=== PATIENT | male | born 1960 | race Caucasian/White ===

== ENCOUNTER 2017-01-12 13:29 | Emergency (ER) | payer BC ==
[2017-01-12 13:39] VITALS: BP 168/82; PULSE 99; RESP 20; TEMP 97.6; O2SAT 98
[2017-01-12] MEDS ORDERED: LOSA25TA PO (13:43)
[2017-01-12] MEDS ORDERED: AMLO2.5T PO (13:43)
[2017-01-12 13:56] LABS: BASOPHIL # 0.1 TH/MM3 (0-0.2); BASOPHIL % 0.7 % (0.0-2.0); EOSINOPHIL # 0.6 TH/MM3 (0-0.4); EOSINOPHIL % 6.1 % (0.0-4.0); HEMATOCRIT 49.8 % (39.0-51.0); HEMO FLAGS DIFF FINAL; LYMPH % 22.9 % (9.0-44.0); LYMPHOCYTE # 2.2 TH/MM3 (1.0-4.8); MEAN CELL VOLUME 84.2 FL (80.0-100.0); MEAN CORPUSCULAR HEMOGLOBIN 28.9 PG (27.0-34.0); MEAN CORPUSCULAR HGB CONC 34.3 % (32.0-36.0); MONO % 6.7 % (0.0-8.0); NEUT % 63.6 % (16.0-70.0); PLATELET COUNT 242 TH/MM3 (150-450); RED BLOOD COUNT 5.91 MIL/MM3 (4.50-5.90); RED CELL DISTRIBUTION WIDTH 12.5 % (11.6-17.2); WHITE BLOOD COUNT 9.5 TH/MM3 (4.0-11.0)
[2017-01-12 13:57] VITALS: O2SAT 95
[2017-01-12] MEDS ORDERED: SODIUM CHLORIDE 0.9% FLUSH 5 ML FLUSH IVF PRN (14:00)
[2017-01-12 14:01] VITALS: BP_SYST 159; BP_SYST 165; BP_DIAS 82; BP_DIAS 92; PULSE 65; RESP 20; O2SAT 97
--- NOTE | 2017-01-12 14:01 | PD ---
HPI Chief Complaint: Chest Pain Time Seen by Provider: 13:39 Travel History International Travel<30 days: No Contact w/Intl Traveler<30days: No Traveled to known affect area: No History of Present Illness HPI This is a 56-year-old male who presents to the emergency department with chest pain that started an hour ago while he was driving in the car, constant, moderate severity in the left side of his chest, nonradiating, with no associated shortness of breath, nausea or diaphoresis. He does have a history of hypertension and hyperlipidemia. He's never had chest pain like this before. He does smoke cigarettes. He has no family history of heart disease. PFSH Past Medical History Hypertension: Yes Social History Alcohol Use: Yes Tobacco Use: Yes Substance Use: No Allergies-Medications (Allergen,Severity, Reaction): Coded Allergies: No Known Allergies (Unverified , 01/12/17) Reported Meds & Prescriptions Reported Meds & Active Scripts Active Reported Amlodipine (Amlodipine Besylate) 2.5 Mg Tab Unknown Dose PO DAILY Losartan (Losartan Potassium) 25 Mg Tab Unknown Dose PO DAILY Review of Systems Except as stated in HPI: all other systems reviewed are Neg Physical Exam Narrative GENERAL:Well appearing, no acute distress SKIN: Warm and dry. HEAD: Atraumatic. Normocephalic. EYES: Pupils equal and round. No injection or drainage. ENT: Moist mucous membranes NECK: Trachea midline. CARDIOVASCULAR: Regular rate and rhythm. No murmur appreciated. RESPIRATORY: Clear to auscultation. Breath sounds equal bilaterally. GASTROINTESTINAL: Abdomen soft, non-tender, nondistended. MUSCULOSKELETAL: No obvious deformities. NEUROLOGICAL: Awake and alert. No obvious cranial nerve deficits. Moving all extremities. PSYCHIATRIC: Appropriate mood and affect; insight and judgment normal. Data Data Last Documented VS Vital Signs Date Time Temp Pulse Resp B/P Pulse Ox O2 Delivery O2 Flow Rate FiO2 01/12/17 15:48 63 20 154/83 100 01/12/17 14:01 Nasal Cannula 2 01/12/17 13:39 97.6 Orders Electrocardiogram (01/12/17 13:48) Complete Blood Count With Diff (01/12/17 13:48) Comprehensive Metabolic Panel (01/12/17 13:48) Troponin I (01/12/17 13:48) Chest, Single Ap (01/12/17 13:48) Ecg Monitoring (01/12/17 13:48) Bilateral Bp Monitoring (01/12/17 13:48) Iv Access Insert/Monitor (01/12/17 13:48) Oximetry (01/12/17 13:48) Oxygen Administration (01/12/17 13:48) Sodium Chloride 0.9% Flush (Ns Flush) (01/12/17 14:00) Nitroglycerin Sl (Nitrostat Sl) (01/12/17 14:45) Troponin I (01/12/17 15:51) Labs Laboratory Tests Test 01/12/17 01/12/17 13:50 16:00 White Blood Count 9.5 TH/MM3 Red Blood Count 5.91 MIL/MM3 Hemoglobin 17.1 GM/DL Hematocrit 49.8 % Mean Corpuscular Volume 84.2 FL Mean Corpuscular Hemoglobin 28.9 PG Mean Corpuscular Hemoglobin 34.3 % Concent Red Cell Distribution Width 12.5 % Platelet Count 242 TH/MM3 Mean Platelet Volume 9.7 FL Neutrophils (%) (Auto) 63.6 % Lymphocytes (%) (Auto) 22.9 % Monocytes (%) (Auto) 6.7 % Eosinophils (%) (Auto) 6.1 % Basophils (%) (Auto) 0.7 % Neutrophils # (Auto) 6.0 TH/MM3 Lymphocytes # (Auto) 2.2 TH/MM3 Monocytes # (Auto) 0.6 TH/MM3 Eosinophils # (Auto) 0.6 TH/MM3 Basophils # (Auto) 0.1 TH/MM3 CBC Comment DIFF FINAL Differential Comment Sodium Level 139 MEQ/L Potassium Level 3.9 MEQ/L Chloride Level 103 MEQ/L Carbon Dioxide Level 26.8 MEQ/L Anion Gap 9 MEQ/L Blood Urea Nitrogen 12 MG/DL Creatinine 0.91 MG/DL Estimat Glomerular Filtration 86 ML/MIN Rate Random Glucose 128 MG/DL Calcium Level 9.0 MG/DL Total Bilirubin 0.4 MG/DL Aspartate Amino Transf 30 U/L (AST/SGOT) Alanine Aminotransferase 41 U/L (ALT/SGPT) Alkaline Phosphatase 98 U/L Troponin I LESS THAN 0.02 LESS THAN 0.02 NG/ML NG/ML Total Protein 8.1 GM/DL Albumin 4.6 GM/DL MDM Medical Decision Making Medical Screen Exam Complete: Yes Emergency Medical Condition: Yes Interpretation(s) EKG: Normal sinus rhythm, some flattening of the ST segments in the inferior and lateral leads Hemoglobin is slightly elevated Electrolytes are reassuring Troponin is normal Chest x-ray is normal Differential Diagnosis Acute coronary syndrome, costochondritis, pericarditis, pneumonia Narrative Course This is a 56-year-old male who presents to the emergency department with chest discomfort that started about an hour prior to arrival. He has no associated visceral symptoms. He was placed on a monitor and an IV was established. EKG has some nonspecific findings. Labs are reassuring. Patient was offered observation to the chest pain center but declined. I did speak to Dr. Lind his primary care physician who has an appointment with him next week. I told the patient was best if he obtained a stress test in the next 24 hours. He prefer to wait follow-up with his primary care physician. Repeat troponin was obtained which was negative. Patient will be discharged home. Diagnosis Primary Impression: Chest pain Qualified Code: R07.9 - Chest pain, unspecified type Patient Instructions: General Instructions Additional Instructions: If you develop severe chest pain, shortness of breath, sweating, lightheadedness , dizziness or difficulty breathing return to the emergency department immediately. Call your primary care physician's office to set up a stress test as soon as possible. Med/Other Pt SpecificInfo: No Change to Meds Disposition: 01 DISCHARGE HOME Condition: Stable Kerry Santiago MD Jan 12, 2017 14:01
[2017-01-12 14:09] LABS: CHLORIDE 103 MEQ/L (98-107); POTASSIUM 3.9 MEQ/L (3.5-5.1); SODIUM (NA) 139 MEQ/L (136-145)
[2017-01-12 14:13] LABS: ANION GAP 9 MEQ/L (5-15); BICARBONATE 26.8 MEQ/L (21.0-32.0); BLOOD UREA NITROGEN 12 MG/DL (7-18)
[2017-01-12 14:16] LABS: ALT (GPT) 41 U/L (12-78); AST (GOT) 30 U/L (15-37); GLOMERULAR FILTRATION RATE 86 ML/MIN (>89)
[2017-01-12 14:17] LABS: TOTAL BILIRUBIN ADULT 0.4 MG/DL (0.2-1.0)
[2017-01-12 14:19] LABS: ALKALINE PHOSPHATASE 98 U/L (45-117)
--- NOTE | 2017-01-12 14:19 | RADHPO ---
EXAM DATE/TIME: 01/12/2017 13:54 [facility] COMPARISON: No previous studies available for comparison. INDICATIONS : Chest pain MEDICAL HISTORY : None. SURGICAL HISTORY : None. ENCOUNTER: Initial ACUITY: 1 day PAIN SCORE: 9/10 LOCATION: Left middle chest FINDINGS: A single view of the chest demonstrates the lungs to be symmetrically aerated without evidence of mas s, infiltrate or effusion. The cardiomediastinal contours are unremarkable. Osseous structures are intact. CONCLUSION: Normal examination. Praneeth Flores Jr., MD on January 12, 2017 at 14:17 Board Certified Radiologist. This report was verified electronically.
[2017-01-12] MEDS ORDERED: NITROGLYCERIN 0.4 MG SL 25 TABS/BTL SL PRN (14:45)
[2017-01-12 14:59] VITALS: BP 155/79; PULSE 64; RESP 20; O2SAT 100
[2017-01-12 15:48] VITALS: BP 154/83; PULSE 63; RESP 20; O2SAT 100
--- NOTE | 2017-01-13 14:53 | EKG ---
Date Performed: 01/12/2017 Time Performed: 13:33:22 PTAGE: 56 years EKG: Sinus rhythm Short QT interval rSr'(V1) - probable normal variant Inferior/lateral ST-T changes are nonspecific B orderline ECG NO PREVIOUS TRACING DOCTOR: Tiffanie Joseph Interpretating Date/Time 01/13/2017 14:51:40
== END 2017-01-12 16:53 | disposition home or self-care (01) ==
LOC: PHED 13:29
DX: R07.9 Chest pain, unspecified (principal); Z72.0 Tobacco use
CPT/HCPCS: 71010; 80053; 84484; 85025; 93005

== ENCOUNTER → 2017-01-24 | Outpatient (CLI) | payer BC ==
[~2017-01-24] MED LIST: AMLO2.5T PO; LOSA25TA PO
--- NOTE | 2017-01-24 14:25 | TR ---
Date Performed: 01/24/2017 Time Performed: 11:28:07 DOCTOR: Tiffanie Joseph DRUG LIST: CLINICAL HISTORY: REASON FOR TEST: REASON FOR ENDING: OBSERVATION: CONCLUSION: CYNTHIA PROTOCOL. NO CP. TEST STOPPED AFTER REACHING GOAL HR SECONDARY TO SOB AND LEG FATIGUE.Maximum LX=280, Max HR Achieved=86.0% Maximum UM=813/90 Total Exercise Time=7:14 COMMENTS:
== END ==
LOC: HCAV 11:05
PROVIDERS: ATTEND Family Medicine
DX: R07.89 Other chest pain (principal)
CPT/HCPCS: 93017